=== PATIENT | male | born 1965 | race Caucasian/White ===

== ENCOUNTER 2017-07-14 18:57 | Emergency (ER) | payer BC ==
[~2017-07-14] VITALS: Ht 180.3 cm; Wt 83.9 kg
[2017-07-14 19:07] VITALS: BP 154/117
[2017-07-14 20:53] LABS: BASOPHIL % 0.3 % (0-2); PLATELET COUNT 282 x10^3mcL (130-400); RED CELL DISTRIBUTION WIDTH 14.4 % (11.5-14.5)
[2017-07-14 21:06] LABS: CALCIUM 8.8 mg/dL (8.5-10.1); CARBON DIOXIDE 30.7 mmol/L (21-32); CHLORIDE SERUM 100 mmol/L (98-107); CREATININE SERUM 0.8 mg/dL (0.7-1.3); GFR1 > 60 mL/min; GLUCOSE SERUM 106 mg/dL (74-106); POTASSIUM SERUM 3.9 mmol/L (3.5-5.1); SODIUM SERUM 137 mmol/L (136-145)
[2017-07-14 21:11] LABS: ALBUMIN 3.7 g/dL (3.4-5.0); ALKALINE PHOSPHATASE 81 U/L (46-116); ALT/SGPT 29 U/L (16-63); AMYLASE 60 U/L (25-115); AST/SGOT 16 U/L (15-37); BILIRUBIN TOTAL 0.47 mg/dL (0.20-1.00); LIPASE 195 IU/L (73-393); TOTAL PROTEIN, SERUM 6.9 g/dL (6.4-8.2)
== END 2017-07-14 20:45 | disposition left against medical advice (07) ==
LOC: ED 18:57
PROVIDERS: Emergency Medicine
DX: R10.32 Left lower quadrant pain (principal); R41.3 Other amnesia; M79.1 Myalgia; T46.6X5A Adverse effect of antihyperlipidemic and antiarteriosclerotic drugs, initial encounter; Y92.89 Other specified places as the place of occurrence of the external cause
CPT/HCPCS: 36415; 83880; J1885

== ENCOUNTER 2017-09-11 00:58 | Emergency (ER) | payer BC ==
[~2017-09-11] VITALS: Ht 180.3 cm; Wt 80.7 kg
[2017-09-11 01:25] VITALS: Ht 180.3 cm; Wt 80.7 kg
[2017-09-11 07:58] LABS: PLATELET COUNT 289 x10^3mcL (130-400); RED CELL DISTRIBUTION WIDTH 13.5 % (11.5-14.5)
[2017-09-11 07:59] LABS: BASOPHIL % 3.7 % (0-2)
[2017-09-11 08:19] LABS: CALCIUM 9.2 mg/dL (8.5-10.1); CARBON DIOXIDE 33.2 mmol/L (21-32); CHLORIDE SERUM 99 mmol/L (98-107); CREATININE SERUM 0.9 mg/dL (0.7-1.3); GFR1 > 60 mL/min; GLUCOSE SERUM 102 mg/dL (74-106); POTASSIUM SERUM 3.8 mmol/L (3.5-5.1); SODIUM SERUM 140 mmol/L (136-145)
[2017-09-11 08:23] LABS: ALBUMIN 4.1 g/dL (3.4-5.0); ALKALINE PHOSPHATASE 89 U/L (46-116); ALT/SGPT 28 U/L (16-63); AST/SGOT 12 U/L (15-37); BILIRUBIN TOTAL 0.7 mg/dL (0.20-1.00); LIPASE 122 IU/L (73-393); TOTAL PROTEIN, SERUM 7.5 g/dL (6.4-8.2); TRIGLYCERIDES 158 mg/dL (<150)
[2017-09-11 08:23] LABS: microscopic required? NO
[2017-09-11 08:24] LABS: CHOLESTEROL 225 mg/dL (<200); CHOLESTEROL/HDL RATIO 3.3; HDL CHOLESTEROL 69 mg/dL (40-60)
[2017-09-11 08:33] LABS: FREE T4 0.94 ng/dL (0.76-1.46); FREE THYROXINE INDEX 2.4 ug/dL (1.4-4.5); T3 TOTAL 1.11 ng/mL; T4(THYROXINE) 7.9 ug/dL (4.7-13.3)
[2017-09-11 08:40] LABS: urine erythrocyte NEGATIVE (NEGATIVE)
[2017-09-11 12:18] VITALS: BP 131/83
== END 2017-09-11 12:18 | disposition home or self-care (01) ==
LOC: ED 00:58
PROVIDERS: Specialist
DX: R10.9 Unspecified abdominal pain (principal); R30.0 Dysuria; F41.1 Generalized anxiety disorder
CPT/HCPCS: 83880; 84439; J1885; Q0092

== ENCOUNTER 2017-09-20 11:05 | Emergency (ER) | payer BC ==
[~2017-09-20] VITALS: Ht 177.8 cm; Wt 768.8 kg
[2017-09-20 11:26] VITALS: Ht 177.8 cm; Wt 768.8 kg
[2017-09-20 13:28] VITALS: BP 120/64
== END 2017-09-20 13:28 | disposition home or self-care (01) ==
LOC: ED 11:05
DX: R30.0 Dysuria (principal)
CPT/HCPCS: 87491; 87591; J0696